=== PATIENT | female | born 1990 | race African-American/Black ===

== ENCOUNTER 2020-03-22 12:02 | Emergency (ER) | payer OTHER ==
[~2020-03-22] VITALS: Ht 160 cm; Wt 63.5 kg
[~2020-03-22 12:02] MED LIST: LO LOESTRIN FE1 EACH PO; NORCO 5-325 TA1 EACH PO
[2020-03-22] MEDS ORDERED: KEFLEX500 M1 PO (13:08)
[2020-03-22] MEDS ORDERED: SSD CREAM 1% 5050 GM TOP (13:08)
[2020-03-22 13:44] VITALS: BP 123/77
== END 2020-03-22 13:35 | disposition home or self-care (01) ==
LOC: ER 12:02
DX: T26.02XA Burn of left eyelid and periocular area, initial encounter (principal); T26.01XA Burn of right eyelid and periocular area, initial encounter; T20.04XA Burn of unspecified degree of nose (septum), initial encounter; T20.03XA Burn of unspecified degree of chin, initial encounter; F17.210 Nicotine dependence, cigarettes, uncomplicated; Z79.899 Other long term (current) drug therapy; X02.8XXA Other exposure to controlled fire in building or structure, initial encounter; Y93.89 Activity, other specified; Y92.89 Other specified places as the place of occurrence of the external cause; Y99.8 Other external cause status

== ENCOUNTER 2020-09-30 12:46 | Emergency (ER) | payer OTHER ==
[~2020-09-30] VITALS: Ht 160 cm; Wt 61.2 kg
[~2020-09-30 12:46] MED LIST changes: +KEFLEX500 M1 PO; +SSD CREAM 1% 5050 GM TOP
[2020-09-30 13:10] LABS: URINE BILIRUBIN NEGATIVE (Negative); URINE BLOOD 1+ (Negative); URINE CLARITY CLEAR; URINE COLOR YELLOW; URINE GLUCOSE-RANDOM* NEGATIVE (Negative); URINE KETONES NEGATIVE (Negative); URINE NITRITE-REFLEX NEGATIVE (Negative); URINE PROTEIN (DIPSTICK) NEGATIVE (Negative); URINE SPECIFIC GRAVITY >= 1.030 (1.005-1.035); URINE UROBILINOGEN 0.2 E.U./dl (0.2-1.0)
[2020-09-30 13:11] LABS: URINE LEUKOCYTES-REFLEX 1+ (Negative)
[2020-09-30 13:24] LABS: CASTS None Seen /LPF (None Seen); MUCUS >6 Heavy strn/LPF (None Seen); SQUAMOUS >10 Many /LPF (0-3)
[2020-09-30 13:25] LABS: CRYSTALS None Seen /LPF (None Seen); URINE RBC 0-2 Rare /HPF (0-2); URINE WBC-REFLEX 6-15 Few /HPF (0-5)
[2020-09-30 13:29] VITALS: BP 130/77
[2020-09-30] MEDS ORDERED: BACTRIM DS TAB1 EAC1 PO (13:36)
== END 2020-09-30 13:56 | disposition home or self-care (01) ==
LOC: ER 12:46
PROVIDERS: Nurse Practitioner Family
DX: N76.4 Abscess of vulva (principal); R59.0 Localized enlarged lymph nodes; F17.210 Nicotine dependence, cigarettes, uncomplicated; Z79.899 Other long term (current) drug therapy